=== PATIENT | male | born 1975 | race Caucasian/White ===

== ENCOUNTER 2021-03-19 11:19 | Emergency (ER) | payer OTHER, SELFPAY ==
--- NOTE | ~2021-03-19 | XR_ITS ---
EXAMINATION: XR chest 2V DATE: 03/19/2021 11:52 INDICATION: Productive cough TECHNIQUE: PA and lateral views of the chest are obtained. COMPARISON: None available FINDINGS: The lungs are free of acute opacities. There is no pleural effusion or pneumothorax. The he art size is normal. An ASD closure device is noted. There is moderate thoracic spondylosis. IMPRESSION: 1. No acute cardiopulmonary abnormality. Reviewed, dictated and finalized at location A.
[2021-03-19 11:30] VITALS: BP 158/102; PULSE 106; RESP 16; TEMP 36.3; O2SAT 98
[2021-03-19 11:38] VITALS: BP 158/102; PULSE 106; RESP 16; TEMP 36.3; O2SAT 98
--- NOTE | 2021-03-19 12:22 | ECG_ITS ---
Measurements Intervals [place] Rate: 101 P: 42 AL: 160 QRS: 12 QRSD: 96 T: 20 QT: 347 QTc: 450 Interpretive Statements SINUS TACHYCARDIA INCOMPLETE RIGHT BUNDLE BRANCH BLOCK BORDERLINE R WAVE PROGRESSION, ANTERIOR LEADS BORDERLINE ECG Electronically Signed On 03-19-2021 13:10:46 CDT by Albino Mcdaniel D.O.
--- NOTE | 2021-03-19 12:41 | ED.CHESTPAIN ---
HPI - Chest Pain General Chief Complaint: Upper Respiratory Infection Stated Complaint: Chest pain Time Seen by Provider: 03/19/21 12:25 Source: patient and RN notes reviewed Mode of arrival: ambulatory Limitations: no limitations History of Present Illness HPI narrative: Patient presents today complaining of sternal chest pain since he woke up this morning at 230. Denies radiation of the pain. Denies shortness of breath, abdominal pain, nausea, vomiting, chills or sweats, numbness or tingling in the extremities, weakness. Denies any sick symptoms. States pain has improved some since onset, but pain does still persist. States he has a cough but this is chronic for him. Currently rates his pain 12/02 and has tried no medication for symptoms prior to arrival. History of stroke. MD complaint: chest pain Related Data Home Medications Medication Instructions Recorded Confirmed No Home Medications 03/19/21 03/19/21 Allergies Allergy/AdvReac Type Severity Reaction Status Date / Time erythromycin base Allergy Hives Verified 03/19/21 11:38 Review of Systems Review of Systems: Narrative: CONSTITUTIONAL: Denies body aches, fever, chills, or sweats. EYES: Denies visual changes, redness, or discharge. ENT: Denies rhinorrhea, congestion, sore throat, or otalgia. CARDIOVASCULAR: Denies palpitations, or edema.+ Chest pain RESPIRATORY: Denies cough or dyspnea. GASTROINTESTINAL: Denies abdominal pain, nausea, vomiting, or diarrhea. GENITOURINARY: Denies dysuria or hematuria. SKIN: Denies rash, itching, or wounds. MUSCULOSKELETAL: Denies back pain, joint pain, or myalgia. NEUROLOGIC: Denies headache, numbness, tingling, or weakness. PSYCH: Denies depression or anxiety. [facility] Past Medical History Medical History (Updated 03/19/21 @ 12:55 by Jerri Solomon, [employer], ) CVA (cerebral vascular accident) Social History Social History (Updated 03/19/21 @ 12:46 by Jerri Solomon, [employer], ) Smoking packs per day: 0.5 Smoking cigarettes per day: 10.0 Smoking status: Current every day smoker Comments At time of signature, I have reviewed and agree with nursing past medical, surgical, social and family history unless otherwise noted. Please see nursing chart for further information. There is no relevant family history pertinent to the presenting complaint Exam Narrative: Exam Narrative: GENERAL: Well-appearing, well-nourished, and in no acute distress. HEAD: Normocephalic, atraumatic. EYES: EOMI. No redness or drainage. Conjunctivae normal. ENT: Mucous membranes pink and moist. Nares clear. No rhinorrhea. NECK: Normal AROM. Supple. No lymphadenopathy. CHEST: No respiratory distress. Clear to auscultation. Chest nontender to palpation. HEART: Regular rate and rhythm. No murmur appreciated. Normal peripheral pulses. ABDOMEN: Soft, nontender, nondistended, normal active bowel sounds. MUSCULOSKELETAL: No bony tenderness. EXTREMITIES: Normal range of motion. No edema. SKIN: Warm, dry, no rash. Capillary refill normal. Normal skin turgor. NEURO: No focal deficits. Alert and oriented x3. Gait steady. PSYCH: Normal affect. No signs of depression or anxiety. Course Vital Signs Vital signs: Vital Signs Temperature 97.3 F L 03/19/21 11:30 Pulse Rate 106 H 03/19/21 11:30 Respiratory Rate 16 03/19/21 11:30 Blood Pressure 158/102 H 03/19/21 11:30 Pulse Oximetry 98 03/19/21 11:30 Temperature 97.3 F L 03/19/21 11:38 Pulse Rate 106 H 03/19/21 11:38 Respiratory Rate 16 03/19/21 11:38 Blood Pressure 158/102 H 03/19/21 11:38 Pulse Oximetry 98 03/19/21 11:38 Reviewed. Pt has been instructed to follow up with his PCP regarding his elevated blood pressure today. MDM - Chest Pain Differential Diagnosis Differential diagnosis: Likely stable angina, atypical chest pain, st elevation myocardial infarction, costochondritis, chest pain and other (Pneumonia) ECG Data EKG #1: ECG completi
== END 2021-03-19 12:57 | disposition left against medical advice (07) ==
PROVIDERS: Emergency Provider Nurse Practitioner; PCP Internal Medicine
DX: R07.89 Other chest pain (principal); Z86.73 Personal history of transient ischemic attack (TIA), and cerebral infarction without residual deficits; F17.210 Nicotine dependence, cigarettes, uncomplicated; I45.10 Unspecified right bundle-branch block
CPT/HCPCS: 71046; 93005; 99203; G0463

== ENCOUNTER 2023-04-24 11:54 | Outpatient (CLI) | payer OTHER, SELFPAY ==
--- NOTE | ~2023-04-24 | US_ITS ---
EXAMINATION: US venous doppler LE RT DATE: 04/24/2023 12:25 INDICATION: Right lower limb pain and swelling TECHNIQUE: Grayscale ultrasound images without and with compression and Doppler ultrasound images of the right lower extremity veins were obtained. COMPARISON: None. FINDINGS: Noncompressible occlusive appearing deep venous thrombosis in the right femoral vein, popliteal vein, gastrocnemius vein, peroneal veins, posterior tibial veins and soleal vein. The visualized portions of right common femoral vein, profunda (deep) femoral vein and greater saphenous vein outflow are pat ent. IMPRESSION: 1. Extensive deep venous thrombosis extending from multiple veins in the right calf through the righ t femoral vein in the proximal thigh. Dr. Hardin discussed these findings with Sandra Love NP at 12:35 PM. Reviewed, dictated and finalized at location B. IMPRESSION: 1. Extensive deep venous thrombosis extending from multiple veins in the right calf through the right femoral vein in the proximal thigh. Dr. Hardin discus sed these findings with Sandra Love NP at 12:35 PM.
== END 2023-04-24 11:55 ==
PROVIDERS: PCP Registered Nurse; Visit Provider Nurse Practitioner
DX: M79.661 Pain in right lower leg (principal); I82.411 Acute embolism and thrombosis of right femoral vein; I82.4Z1 Acute embolism and thrombosis of unspecified deep veins of right distal lower extremity
CPT/HCPCS: 93971

== ENCOUNTER 2023-12-05 13:25 | Outpatient (CLI) | payer OTHER, SELFPAY ==
--- NOTE | ~2023-12-05 | XR_ITS ---
EXAM: XR abdomen/kub 1V DATE: 12/05/2023 13:42 HISTORY: MICROSOPIC HEMATURIA . COMPARISON: CT abdomen pelvis, same date. FINDINGS: Clear lung bases. Normal bowel gas pattern. Enlarged liver. Multiple calcifications over t he bilateral renal shadows measuring up to 5 mm in the right midpole. Mild lumbar degenerative disc d isease and bilateral hip osteoarthritis. IMPRESSION: Bilateral nephrolithiasis. Hepatomegaly. Reviewed, dictated and finalized at location K.
--- NOTE | ~2023-12-05 | CT_ITS ---
EXAMINATION: CT abdomen pelvis wo/w con DATE: 12/05/2023 14:08 INDICATION: Microscopic hematuria. TECHNIQUE: Computed tomography (CT) of the abdomen and pelvis was performed without and with intraven ous contrast using a total of 130 mL Omnipaque-350 intravenous contrast with a double-bolus technique for simultaneous opacification of the renal parenchyma and renal collecting system. Automated exposu re control and iterative reconstruction technique were employed. The dose-length product was 1868.25 mGy-cm. COMPARISON: None FINDINGS: The visualized portions of the lung bases are clear without pneumonia or pleural effusion. The heart size is normal. There is an interatrial closure device. No pericardial effusion. The liver, gallbladd er, spleen, pancreas, and adrenal glands are normal. There are 4 stones in right kidney measuring up to 4 mm. There are 4 stones in left kidney measuring up to 5 mm. The ureters are well opacified and a re normal. The bladder is normal. There is an umbilical hernia containing fat. There is a left inguin al hernia containing fat. There are no dilated loops of bowel. There are no dilated loops of bowel. T he appendix is normal. There are no pathologically enlarged lymph nodes. There is no free intraperito tom fluid. There is mild thoracic and lumbar spondylosis. IMPRESSION: 1. Bilateral nonobstructing kidney stones. Reviewed, dictated and finalized at location A.
[2023-12-05 13:50] LABS: Estimated Glomerular Filt Rate > 60
== END 2023-12-05 13:26 | disposition home or self-care (01) ==
LOC: ANHIMG 13:27
PROVIDERS: PCP Registered Nurse; Visit Provider Nurse Practitioner Family
DX: N20.0 Calculus of kidney (principal); R16.0 Hepatomegaly, not elsewhere classified; R31.29 Other microscopic hematuria
CPT/HCPCS: 36415; 74018; 74178; Q9967